=== PATIENT | female | born 1980 | race Caucasian/White ===

== ENCOUNTER 2016-07-25 08:24 | Inpatient (IN) | payer OTHER ==
[2016-07-25] VITALS (49 sets, daily range): BP systolic 70–156; BP diastolic 31–111; PULSE 51–109; RESP 16–20; TEMP 97.9–98.8
[~2016-07-25 08:24] MED LIST: OXYC1SOL5 PO; PREN0.01 PO
[2016-07-25] MEDS ORDERED: LACTATED RINGER'S 1000 ML INJ 1,000 ML IV PRN (09:30)
[2016-07-25] MEDS ORDERED: SODIUM CHLORID 0.9% 500 ML INJ 500 ML IV PRN (09:30)
[2016-07-25] MEDS ORDERED: LIDOCAINE HCL 1% 50 ML VIAL INFIL PRN (09:30)
[2016-07-25] MEDS ORDERED: MINERAL OIL 10 ML VIAL TOPICAL PRN (09:30)
[2016-07-25] MEDS ORDERED: OXYTOCIN 30 UNITS-500ML PREMIX 500 ML IV SCH (09:30)
[2016-07-25] MEDS ORDERED: LIDOCAINE HCL 1% 50 ML VIAL I-DERMAL PRN (09:30)
[2016-07-25] MEDS ORDERED: OXYTOCIN 30 UNITS-500ML PREMIX 500 ML IV ONE (09:30)
[2016-07-25] MEDS ORDERED: CITRIC ACID-SODIUM CITRATE LIQ 30 ML UDC PO SCH (09:30)
[2016-07-25 09:34] LABS: AUTOMATED NEUTROPHIL # 9.9 TH/MM3 (1.8-7.7); BASOPHIL # 0.1 TH/MM3 (0-0.2); BASOPHIL % 0.4 % (0.0-2.0); EOSINOPHIL # 0.1 TH/MM3 (0-0.4); HEMATOCRIT 37.2 % (35.0-46.0); HEMO FLAGS DIFF FINAL; LYMPH % 15.9 % (9.0-44.0); MEAN CELL VOLUME 87.4 FL (80.0-100.0); MEAN CORPUSCULAR HGB CONC 33.2 % (32.0-36.0); MONO % 5.5 % (0.0-8.0); NEUT % 77.2 % (16.0-70.0); PLATELET COUNT 166 TH/MM3 (150-450); RED BLOOD COUNT 4.26 MIL/MM3 (4.00-5.30); RED CELL DISTRIBUTION WIDTH 14.6 % (11.6-17.2); WHITE BLOOD COUNT 12.8 TH/MM3 (4.0-11.0)
[2016-07-25] MEDS ORDERED: SODIUM CHLOR 0.9% 1000 ML INJ 1,000 ML IV PRN (09:37)
[2016-07-25] MEDS ORDERED: fentaNYL 2MCG-BUPIV 0.125% INJ 100 ML ONE (09:42)
[2016-07-25 09:58] LABS: BACTERIA, URINE OCC /hpf; BLOOD, URINE NEG (NEG); COMMENT (UR) CULT NOT INDICATED; CULTURE IF INDICATED CULT NOT INDICATED; GLUCOSE,URINE NEG (NEG); KETONE, URINE 10 mg/dL (NEG); MUCUS URINE MANY /lpf (OCC); NITRITE,URINE NEG (NEG); PH, URINE 5.5 (5.0-8.5); RENAL EPITHELIAL CELLS <1 /hpf; SQUAMOUS EPITHELIAL CELL URINE 11 /hpf (0-5); URINE COLOR YELLOW (YELLW/STRAW)
[2016-07-25] MEDS ORDERED: LACTATED RINGER'S 1000 ML INJ 1,000 ML IV SCH (10:00)
[2016-07-25] MEDS ORDERED: ePHEDrine/NS 50 MG/5 ML SYR ONE (10:38)
--- NOTE | 2016-07-25 12:22 | PD.OB.DELI ---
Delivery Date: Jul 25, 2016 Anesthesia: Epidural Episiotomy: None Vaginal Delivery: Normal, Spontaneous Presentation: Occiput anterior Nuchal Cord: None : Female, Single One Minute : 9 Five Minute : 9 Weight: 7# 7 oz Infant Care: Spontaneous crying, Responded to stimulation Placenta: Spontaneous delivery, Intact, 3 vessel cord Laceration: Vaginal laceration, 1 deg Repair: Chromic interrupted Matheus Ignacio MD Jul 25, 2016 12:22
[2016-07-25] MEDS ORDERED: ALUMINUM/MAGNESIUM/SIMETH 30 ML CUP PO PRN (12:30)
[2016-07-25] MEDS ORDERED: BENZOCAINE 20% TOPICAL SPRAY 60 ML CAN TOPICAL PRN (12:30)
[2016-07-25] MEDS ORDERED: WITCH HAZEL 50%/GLYCERIN 12.5% 40 PAD JAR TOPICAL PRN (12:30)
[2016-07-25] MEDS ORDERED: ZOLPIDEM TARTRATE 5 MG TAB PO PRN (12:30)
[2016-07-25] MEDS ORDERED: ONDANSETRON ODT 4 MG TAB PO PRN (12:30)
[2016-07-25] MEDS ORDERED: SODIUM CHLORIDE 0.9% FLUSH 5 ML FLUSH IV PRN (12:30)
[2016-07-25] MEDS ORDERED: oxyCODONE/ACETAMINOPHEN 5 MG/325 MG TAB PO PRN (12:30)
--- NOTE | 2016-07-25 13:15 | MH ---
cc: KAR VALENTINO M.D. DATE OF ADMISSION: 07/25/2016 HISTORY OF PRESENT ILLNESS: This is a 35-year-old white female 3, para 2 who comes in for induction of labor at 39 weeks and 4 cm dilated. The patient was admitted to the hospital. She was group B strep negative. Her cervix is now 5 cm dilated on admission. The plan was to rupture membranes. The patient agreed with that plan, and all questions were answered. PAST MEDICAL HISTORY: Hypothyroidism, which she does not take medication for. ALLERGIES: None. MEDICATIONS: None SOCIAL HISTORY: She does not smoke, drink or use drugs. Two vaginal births before. OBSTETRICAL HISTORY Two vaginal births. PAST SURGICAL HISTORY: None. PHYSICAL EXAMINATION: VITAL SIGNS: Stable and afebrile. NECK: Thyroid palpated normally. HEART: Regular rate and rhythm without murmur, rub or gallop. LUNGS: Clear to auscultation bilaterally. ABDOMEN: The abdomen is soft, nontender and nondistended. Gravid uterus. PELVIC: Cervix is 5 cm, 80% effaced, -2. LOWER EXTREMITIES: No edema. IMPRESSION AT THIS TIME: 39-week intrauterine for induction of labor at 5 cm dilated. The patient will be ruptured membranes, Pitocin if required and we will expectantly manage after that. MD BEL Alegria/MARILOU /12:30 PM /1:08 PM
[2016-07-25] MEDS ORDERED: fentaNYL 2MCG-BUPIV 0.125% INJ 100 ML EPIDURAL SCH (13:30)
[2016-07-25] MEDS ORDERED: NO SYSTEM NARCOTICS XX PRN (13:30)
[2016-07-25] MEDS ORDERED: ePHEDrine/NS 50 MG/5 ML SYR IV PRN (13:30)
[2016-07-25] MEDS ORDERED: DO NOT ADMINISTER ANTICOAGULANTS XX PRN (13:30)
[2016-07-25] MEDS: IBUPROFEN 600 MG TAB PO PRN ×2 (13:43→21:09)
[2016-07-25] MEDS ORDERED: MEASLES, MUMPS, RUBELLA VACCINE 0.5 ML VIAL SQ ONE (16:00)
[2016-07-25] MEDS ORDERED: DIPHTH/TETANUS/ACEL PERTUSSIS (BOOSTER) 0.5 ML VIAL/PFS IM ONE (16:00)
[2016-07-25] MEDS: ACETAMINOPHEN 325 MG TAB PO PRN (19:35)
[2016-07-25] MEDS ORDERED: SODIUM CHLORIDE 0.9% FLUSH 5 ML FLUSH IV SCH (21:00)
[2016-07-25] MEDS: DOCUSATE SODIUM 50 MG/SENNA 8.6 MG TAB PO PRN (21:12)
[2016-07-26] MEDS: oxyCODONE/ACETAMINOPHEN 5 MG/325 MG TAB PO PRN ×2 (00:41→05:08)
[2016-07-26 02:40] VITALS: RESP 18
[2016-07-26] MEDS: IBUPROFEN 600 MG TAB PO PRN ×3 (05:07→16:35)
[2016-07-26] MEDS ORDERED: OXYC1TAB63 PO (08:14)
--- NOTE | 2016-07-26 08:15 | HHI.DCPOC ---
Discharge Care Plan Diagnosis: (1) Spontaneous vaginal delivery Report Symptoms to Your Doctor -Temperate above 100.5 degrees -Redness, of incision or excessive or foul smelling drainage -Unusual pain or calf pain -Increased vaginal bleeding -Painful or difficulty urinating -Feelings of extreme sadness or anxiety after 2 weeks Goals to Promote Your Health * To prevent worsening of your condition and complications * To maintain your health at the optimal level Directions to Meet Your Goals Take your medications as prescribed Follow your dietary instruction Follow activity as directed Ensure plenty of rest for recovery Drink fluids for hydration Keep your appointments as scheduled Take your immunizations and boosters as scheduled If your symptoms worsen call your PCP, if no PCP go to Urgent Care Center or Emergency Room Smoking is Dangerous to Your Health. Avoid second hand smoke Call the 24-hour crisis hotline for domestic abuse at Matheus Ignacio MD Jul 26, 2016 08:15
--- NOTE | 2016-07-26 08:15 | HHI.OB ---
Subjective Post Day: 1 Remarks doing well, ambulating Objective Vitals/I&O Vital Signs Date Time Temp Pulse Resp B/P Pulse Ox O2 Delivery O2 Flow Rate FiO2 07/26/16 02:40 18 07/25/16 19:40 71 20 116/77 07/25/16 19:40 98.8 07/25/16 16:40 98.3 18 07/25/16 16:40 80 136/78 07/25/16 13:50 16 07/25/16 13:15 75 126/67 07/25/16 13:05 18 07/25/16 13:00 70 121/70 07/25/16 12:50 79 117/70 07/25/16 12:50 79 18 117/70 07/25/16 12:34 18 07/25/16 12:31 79 111/80 07/25/16 12:20 18 07/25/16 12:15 83 127/74 07/25/16 12:05 18 07/25/16 12:00 92 107/92 07/25/16 11:45 97.9 18 07/25/16 11:42 91 140/78 07/25/16 11:39 81 103/61 07/25/16 11:36 79 112/62 07/25/16 11:33 83 107/68 07/25/16 11:31 78 108/61 07/25/16 11:15 16 07/25/16 11:15 81 121/71 07/25/16 11:12 82 119/74 07/25/16 11:09 75 121/66 07/25/16 11:06 74 122/68 07/25/16 11:03 73 120/65 07/25/16 11:00 83 123/68 07/25/16 10:57 80 126/74 07/25/16 10:54 77 124/69 07/25/16 10:51 78 113/55 07/25/16 10:48 84 123/68 07/25/16 10:45 79 122/63 07/25/16 10:43 73 120/68 07/25/16 10:41 61 100/62 07/25/16 10:40 53 90/50 07/25/16 10:39 51 74/32 07/25/16 10:36 64 70/45 07/25/16 10:33 80 107/58 07/25/16 10:31 88 115/75 07/25/16 10:27 108 116/75 07/25/16 10:24 106 124/80 07/25/16 10:21 87 126/74 07/25/16 10:18 93 121/78 07/25/16 10:15 85 122/69 07/25/16 10:15 86 07/25/16 10:12 91 129/72 07/25/16 10:10 94 07/25/16 10:09 94 156/89 07/25/16 10:07 87 125/75 07/25/16 10:05 103 07/25/16 09:58 92 130/111 07/25/16 09:57 109 87/31 Objective Remarks GENERAL: Well-nourished, well-developed patient. ABDOMEN/GI: Abdomen soft, non-tender. Fundus: Firm, non-tender at umbilicus. GENITOURINARY: Light to moderate bleeding. EXTREMITIES: No cyanosis or edema, non-tender, without signs of DVT. Medications and IVs Current Medications Medications (Trade) Dose Ordered Sig/Bacilio Route Start Time Stop Time Status Last Admin Lactated Ringer's 1,000 ml @ 125 mls/hr Q8H IV 07/25/16 10:00 Lactated Ringer's 1,000 ml @ 3,000 mls/hr Q20M PRN IV 07/25/16 09:30 (NS 1000 ml Inj) 1,000 ml @ 100 mls/hr Q10H PRN IV 07/25/16 09:37 (fentaNYL INJ) 50 mcg Q1H PRN IV PUSH 07/25/16 09:30 (fentaNYL INJ) 100 mcg Q1H PRN IV PUSH 07/25/16 09:30 Mineral Oil 10 ml 10 ml UNSCH PRN TOPICAL 07/25/16 09:30 (Pitocin 30 Units-NS 500 ml Premix) 500 ml @ 0 mls/hr TITRATE IV 07/25/16 09:30 (NS Flush) 2 ml BID IV 07/25/16 21:00 (NS Flush) 2 ml UNSCH PRN IV 07/25/16 12:30 (Tylenol) 650 mg Q4H PRN PO 07/25/16 12:30 07/25/16 19:35 (Motrin) 600 mg Q6H PRN PO 07/25/16 12:30 07/26/16 05:07 (Percocet 5-325 Mg) 1 tab Q4H PRN PO 07/25/16 12:30 07/26/16 05:08 (Percocet 5-325 Mg) 2 tab Q4H PRN PO 07/25/16 12:30 (Americaine 20% Top Spr) 1 spray Q4H PRN TOPICAL 07/25/16 12:30 (Tucks Pads) 1 applic QID PRN TOPICAL 07/25/16 12:30 (Cira-Colace) 2 tab Q12H PRN PO 07/25/16 12:30 07/25/16 21:12 (Ambien) 5 mg HS PRN PO 07/25/16 12:30 (Mag-Al Plus Susp Liq) 15 ml Q8H PRN PO 07/25/16 12:30 (Zofran Odt) 4 mg Q6H PRN PO 07/25/16 12:30 Miscellaneous Information No systemic narcotics to be given except... UNSCH PRN XX 07/25/16 13:30 07/26/16 13:29 Miscellaneous Information DO NOT ADMINISTER ANY ANTICOAGUL... UNSCH PRN XX 07/25/16 13:30 07/26/16 13:29 (fentaNYL 2MCG-BUPIV 0.125% INJ) 100 ml @ 0 mls/hr TITRATE EPIDURAL 07/25/16 13:30 (ePHEDrine/NS 50 MG/5 ML SYR) 10 mg UNSCH PRN IV 07/25/16 13:30 07/26/16 13:29 Assessment/Plan Problem List: (1) Spontaneous vaginal delivery Discharge Planning dc today Matheus Ignacio MD Jul 26, 2016 08:15
--- NOTE | 2016-07-26 08:17 | HHI.DS ---
Admission Date Jul 25, 2016 at 08:24 Discharge Date: Jul 26, 2016 Admitting Diagnosis Diagnosis: (1) Spontaneous vaginal delivery Diagnosis: Principal Delivery Date: Jul 25, 2016 Vaginal Delivery: Normal, Spontaneous Infant: Female, Single Brief History induction at 4-5 cm at greater than 39 weeks Hospital Course doing well dc home ppd #1 Pt Condition on Discharge: Good Discharge Disposition: Discharge Home Discharge Instructions Diet Instructions: As Tolerated, No Restrictions Activities You Can Perform: Pelvic Rest Activities to Avoid: Driving for 24 hrs Follow up Referrals: [facility] - 2 Weeks @ [facility] with Matheus Ignacio MD New Medications: Oxycodone-Acetaminophen (Oxycodone-Acetaminophen) 5-325 mg Tab 2 TAB PO Q4H PRN PAIN SCALE 6 TO 10 #20 TAB Continued Medications: () 1 TAB PO DAILY #30 Discontinued Medications: Oxycodone W/ Acetaminophen (Oxycodone/Acetaminophen 5-325 mg/5Ml) 5 mg/325 mg Tab 2 TAB PO Q4H PRN PAIN SCALE 5 TO 10 #20 TAB Matheus Ignacio MD Jul 26, 2016 08:17
[2016-07-26] MEDS: DOCUSATE SODIUM 50 MG/SENNA 8.6 MG TAB PO PRN (09:36)
[2016-07-26] MEDS: ACETAMINOPHEN 325 MG TAB PO PRN ×2 (09:37→14:24)
== END 2016-07-26 19:20 | disposition home or self-care (01) | DRG 775 ==
LOC: H2EB 08:24 → H1EA 14:20
PROVIDERS: ADMIT Obstetrics & Gynecology; ATTEND Obstetrics & Gynecology
PROC: 10E0XZZ Delivery of Products of Conception, External Approach (ICD-10-PCS; principal; 2016-07-25)
PROC: 0UQGXZZ Repair Vagina, External Approach (ICD-10-PCS; 2016-07-25)
PROC: 10907ZC Drainage of Amniotic Fluid, Therapeutic from Products of Conception, Via Natural or Artificial Opening (ICD-10-PCS; 2016-07-25)
PROC: 00HU33Z Insertion of Infusion Device into Spinal Canal, Percutaneous Approach (ICD-10-PCS; 2016-07-25)
PROC: 3E0R3CZ (ICD-10-PCS; 2016-07-25)
DX: O99.284 Endocrine, nutritional and metabolic diseases complicating childbirth (principal); E03.9 Hypothyroidism, unspecified; O71.4 Obstetric high vaginal laceration alone; Z3A.39 39 weeks gestation of pregnancy; Z37.0 Single live birth
CPT/HCPCS: 59025; 81001; 85025; 90715